=== PATIENT | male | born 1965 | race Caucasian/White ===

== ENCOUNTER 2021-10-11 12:59 | Outpatient (CLI) | payer OTHER, SELFPAY ==
--- NOTE | ~2021-10-11 | MR_ITS ---
EXAMINATION: MR lumbar spine wo con DATE: 10/11/2021 13:45 INDICATION: Lumbar radiculopathy. TECHNIQUE: Magnetic resonance imaging (MRI) of the lumbar spine was performed without intravenous con trast. Sequences included sagittal T2-weighted FSE, sagittal T2-weighted FS FSE, sagittal T1-weighted FSE, and axial T2-weighted FSE. COMPARISON: None FINDINGS: There is 6 degrees dextrocurvature of thoracolumbar spine. There are chronic bilateral L5 p ars defects. There is 9 mm anterolisthesis of L5 on S1. There is 4 mm retrolisthesis of T12 on L1. Th ere is mild chronic anterior wedging of T11 and T12 vertebral bodies. There is moderately decreased d isc height at T12-L1 and L1-L2, severely decreased disc height from L2-L3 through L4-L5, and moderate ly decreased disc height at L5-S1 with endplate remodeling. The distal spinal cord signal intensity i s normal. The conus medullaris is at T12. The following disc levels are specifically discussed: T12-L1: The disc is bulging with superimposed left central extrusion. There is mild bilateral facet j oint osteoarthritis. There is no neural foraminal stenosis. There is mild central canal stenosis. L1-L2: The disc is bulging with superimposed central extrusion. There is mild bilateral facet joint o steoarthritis. There is mild bilateral neural foraminal stenosis. There is mild central canal stenosi s. L2-L3: The disc is bulging and has an annular fissure. There is mild bilateral facet joint osteoarthr itis. There is mild bilateral neural foraminal stenosis. There is mild central canal stenosis. L3-L4: The disc is bulging and has an annular fissure. There is mild bilateral facet joint osteoarthr itis. There is moderate right and mild left neural foraminal stenosis. There is mild central canal st enosis. L4-L5: The disc is bulging and has an annular fissure. There is moderate bilateral facet joint osteoa rthritis. There is moderate bilateral neural foraminal stenosis. There is mild central canal stenosis . L5-S1: The disc is bulging and has an annular fissure. There is mild bilateral facet joint osteoarthr itis. There is mild bilateral neural foraminal stenosis. There is no central canal stenosis. IMPRESSION: 1. Severe lumbar spondylosis. 2. Chronic bilateral L5 pars defects with grade 2 anterolisthesis of L5 on S1. Reviewed, dictated and finalized at location A. ING SPECIALIST
== END 2021-10-11 13:00 ==
PROVIDERS: PCP Nurse Practitioner Adult Health; Visit Provider Nurse Practitioner Adult Health
DX: M47.27 Other spondylosis with radiculopathy, lumbosacral region (principal); M48.07 Spinal stenosis, lumbosacral region
CPT/HCPCS: 72148

== ENCOUNTER → 2021-12-19 14:40 | Outpatient (CLI) | payer OTHER, SELFPAY ==
--- NOTE | ~2021-12-19 | XR_ITS ---
XR hand RT min 3V DATE: 12/19/2021 15:05 INDICATION: Right hand pain TECHNIQUE: 3 views COMPARISON: 12/19/2021 right wrist FINDINGS: There is a displaced fracture of the waist of the navicular bone which is likely chronic. I ncreased density of the proximal fragment is not detected. Polyarticular osteoarthritis is noted, including lunate capitate, triscaphe, first carpometacarpal gurinder ints. Mild spurring at the radial ulnar joint. No other fracture or dislocation is noted. IMPRESSION: Probable chronic displaced navicular waist fracture, without definite radiographic eviden ce of avascular necrosis of the proximal fragment; consider CT or MR evaluation Polyarticular osteoarthritis Reviewed, dictated and finalized at location A. LLECTUAL PROPERTY PARALEGAL IMPRESSION: Probable chronic displaced navicular waist fracture, without defini te radiographic evidence of avascular necrosis of the proximal fragment; consid er CT or MR evaluation Polyarticular osteoarthritis
--- NOTE | ~2021-12-19 | XR_ITS ---
XR hand LT min 3V DATE: 12/19/2021 15:05 INDICATION: Left hand TECHNIQUE: 3 views COMPARISON: None FINDINGS: There is osteoarthritis at triscaphe and first carpal metacarpal joints. No fracture or dislocation, periosteal reaction or bone destruction or erosive change or chondrocalci nosis. 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 UCTION CONSULTANT
--- NOTE | ~2021-12-19 | XR_ITS ---
XR wrist RT min 3V DATE: 12/19/2021 15:05 INDICATION: Right wrist/hand pain TECHNIQUE: 4 views COMPARISON: None FINDINGS: There is probable chronic fracture of the waist of the navicular bone with volar displaceme nt of the distal fragment. Consider CT or MR right wrist examination for further evaluation. There is polyarticular osteoarthritis involving the radial carpal joint, including the lunate capitat e joint and first carpometacarpal joint. IMPRESSION: Probable chronic navicular waist displaced fracture; consider CT or MR right wrist examin ation for further evaluation Polyarticular osteoarthritis Reviewed, dictated and finalized at location A. ING APPRENTICE IMPRESSION: Probable chronic navicular waist displaced fracture; consider CT or MR right wrist examination for further evaluation Polyarticular osteoarthritis
--- NOTE | ~2021-12-19 | XR_ITS ---
XR wrist LT min 3V DATE: 12/19/2021 15:05 INDICATION: Left wrist/hand pain TECHNIQUE: 4 views COMPARISON: None FINDINGS: There is osteoarthritis at the triscaphe and first carpometacarpal joints. No fracture or dislocation, periosteal reaction or bone destruction. 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 UCT CONTROLLER
== END ==
PROVIDERS: PCP Nurse Practitioner Adult Health; Visit Provider Nurse Practitioner Adult Health
DX: M18.0 Bilateral primary osteoarthritis of first carpometacarpal joints (principal); M19.042 Primary osteoarthritis, left hand; M19.041 Primary osteoarthritis, right hand
CPT/HCPCS: 73110; 73130